=== PATIENT | female | born 1955 | race African-American/Black ===

== ENCOUNTER → 2016-12-22 | Outpatient (CLI) | payer OTHER ==
[~2016-12-22] MED LIST: AMLO2.5T PO; ASPI-586 PO; Harvoni; TLT2T PO
--- NOTE | 2016-12-22 19:02 | Diagnostic Imaging Report ---
EXAMINATION: Transabdominal and transvaginal pelvic ultrasound. INDICATION: Uterine mass. History of fibroids. FINDINGS: The uterus is 10.8 x 7.0 x 6.4 cm. The endometrial stripe is obscured. The myometrium is heterogenous with suggestion of an underlying mass, measuring 8.5 x 6.3 x 5.8 cm presumably related to a fibroid. The ovaries are obscured by bowel gas. IMPRESSION: An 8.5 cm uterine mass is presumably related to a fibroid. Dictated by: Dictated on workstation # [id number]
--- NOTE | 2016-12-22 19:09 | Diagnostic Imaging Report ---
PA and lateral views of the chest. INDICATION: Positive TB skin test. FINDINGS: The lungs are clear. The heart size is normal. There is no effusion or pneumothorax. The mediastinum and laurita appear unremarkable. When compared to 04/08/2015, no significant change is appreciated. IMPRESSION: Unremarkable exam. Dictated by: Dictated on workstation # [id number]
== END ==
LOC: RAD 15:50
PROVIDERS: ATTEND Family Medicine
DX: N85.9 Noninflammatory disorder of uterus, unspecified (principal); R76.11 Nonspecific reaction to tuberculin skin test without active tuberculosis
CPT/HCPCS: 71020; 76830; 76856

== ENCOUNTER → 2017-01-19 | Outpatient (CLI) | payer OTHER | LOC: LAB 10:35 | PROVIDERS: ATTEND Family Medicine | DX: Z02.1 Encounter for pre-employment examination (principal) | CPT/HCPCS: 36415; 86735; 86762; 86765 ==